=== PATIENT | male | born 1945 | race Caucasian/White ===

== ENCOUNTER → 2017-01-09 | Outpatient (CLI) | payer MEDICARE, BC ==
--- NOTE | 2017-01-09 17:49 | RADRPT ---
PROCEDURE: XR Left hip and pelvis. CLINICAL INDICATION: Left hip pain and pelvic pain. TECHNIQUE: 3 views. Frontal pelvis. Frontal and lateral left hip. COMPARISON: None. FINDINGS: There is no fracture or dislocation. The soft tissues are normal. The right hip demonstrates mild degenerative change with osteophytes noted. The left hip demonstrate s moderate degenerative change with osteophytes, subarticular sclerosis, subarticular cysts, and mary nt space narrowing. There is no lytic or blastic lesion. There has been prior pelvic surgery with metal surgical material noted, likely from mesh placement. There are degenerative changes of the lower lumbar spine. IMPRESSION: 1. Mild degenerative changes of the right hip. 2. Moderate degenerative changes of the left hip. 3. Degenerative changes of the lower lumbar spine. 4. Prior pelvic surgery. RPTAT: QQ .Duarte Parra MD, MD Date Time Electronically viewed and signed by .Duarte Parra MD, MD on 01/09/2017 17:49 .R/
--- NOTE | 2017-01-09 17:50 | RADRPT ---
PROCEDURE: Right knee radiographs. CLINICAL INDICATION: Right knee pain. TECHNIQUE: Four views. Weight bearing. Frontal, lateral, oblique, and patellar view. COMPARISON: No prior studies are available for comparison. FINDINGS: There is no fracture or dislocation. There is chondrocalcinosis. Vascular calcifications are present consistent with atherosclerosis. There are degenerative changes with osteophytes arising from all 3 joint compartment margins. There is medial joint compartment narrowing, subarticular sclerosis, and mild deformity. There is no lytic or blastic lesion. There is no radiopaque foreign body. IMPRESSION: 1. Atherosclerosis. 2. Chondrocalcinosis. 3. Moderate to severe degenerative changes of the right knee. RPTAT: QQ .Duarte Parra MD, MD Date Time Electronically viewed and signed by .Duarte Parra MD, on 01/09/2017 17:49 .R/
--- NOTE | 2017-01-11 11:32 | HKNOTE ---
DATE OF SERVICE: 01/09/2017 HISTORY: Pain in the right knee and left hip. HISTORY OF CHIEF COMPLAINT: He underwent surgery in 1974 for torn ligaments of the right knee by Dr. Knox in [place]. After having an injury to this knee, he had apparently an open reconstruction s urgery for torn ligaments. He then continued to play handball for 7 years, the knee became somewhat painful and then he started playing racquetball for 15 years. Twelve years ago he started hiking and would find that he had pain coming down a hill on occasion. He then went and had surgical therapy t reatments to strengthen his quadriceps muscle and the pain got somewhat better. He does not take reg ular medications but does take Motrin tablets as needed. CURRENT COMPLAINTS IN THE RIGHT KNEE: He has no pain today; however, he does have pain going up and down stairs or riding his bicycle. The pain has got somewhat better. He denies stiffness in the rig ht knee but has had a constant swelling of the knee. There is no giving away of the knee, there is n o locking of his right knee. LEFT HIP: For 3 years he has noted pain in the left hip getting worse. He has had x-rays for the hip at some stage. The pain now is in the front of the hip, it is somewhat moderate in nature. It only occurs when he is walking. When sitting or relaxing, he has no pain in the left hip. The pain does not waken him at night. He has no difficulty tying his shoes or putting on socks. He has no difficul ty sitting in a tub or in a low chair. The pain in the left hip is aggravated by gardening and relie xu by sitting down and taking the weight off his left leg. His general health has been satisfactory. He has been treated for high cholesterol with a statin med ication. He also takes baby aspirin, 1 a day. MARITAL STATUS: He is , he has 5 children. 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 PHYSICAL EXAMINATION: GENERAL: Healthy adult male, age 71, height 5 feet 9 inches, weight 175 pounds. RIGHT KNEE: He walks well, he is noted to have a marked varus deformity of the right knee. He is als o noted to have marked wasting of the right calf muscle and was also noted to have a large swelling at the back of the right knee in the popliteal fossa. He is able to walk on his tip toes and his julissa ls, has difficulty doing deep knee bends. Further examination of the right knee reveals a 4 inch ant erior and medial scar from the surgery that was done in 1974. There is tenderness over the medial tommy int line. There is some restriction of knee flexion, knee motion is from 0 to 130 degrees on the rig ht and 0 to 140 degrees on the left when the left knee range of motion is compared. There is no inst ability of the medial or lateral collateral ligaments or anterior posterior cruciate ligaments. The Guillermo test is negative. The Apley grinding test is negative. The pivot shift test is negative. Th ere is no evidence of subluxation of the patella and there is good motion of the patella with mild c repitus. Examination of the popliteal fossa reveals marked swelling in the popliteal fossa. This chris ears to be some adipose tissue and does not appear to be a Wise's cyst. LEFT HIP: There is tenderness over the anterior aspect of the left hip. HIP MOTION: RIGHT LEFT NORMAL Flexion: 140 130 Abduction: 45 40 Adduction: 40 35 External rotation: 50 40 Internal rotation: 45 5 with pain There is no evidence of a Trendelenburg gait. There is slight shortening of the right lower extremit y due to the varus deformity of the right knee. NEUROLOGICAL EXAMINATION OF THE LOWER LIMBS MOTOR: No wasting or weakness is noted. SENSATION: No disturbance to pinprick or light touch. REFLEXES: Right: 4+ Left:4+ Ankle: 2+ right and left. Plantar Flexor: Right flexor left. MEASURMENTS: Thigh circumference 6 inches above the superior pole of the patella, right 17-1/2, left 17-1/2. Knee circumference: Right 15, left 14. Calf circumference: Right 13-1/2, left 14-1/2. He is noted to have very well developed, excellent qu adricep muscles bilaterally. X-RAYS: X-rays were taken. X-rays of the right knee show marked narrowing of the medial joint space with a varus deformity of t he right knee. There is also some slight patella femoral arthritic changes. There are 2 small policy specialist ior loose bodies noted. X-rays of the hips reveal a grade 2 osteoarthritis of the left hip with some moderate to mild narrow ing of the joint with some periarticular sclerosis and small cyst formation. DIAGNOSES: 1. 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 2. Left hip: Grade 2 osteoarthritis. TREATMENT: The x-rays have been shown to the patient. It has been explained to him in great detail, the nature of his condition, especially the unique condylar medial osteoarthritis following the init ial surgery that he had in 1974 which has progressed to this stage and the varus deformity. The hip x-ray has also been shown. Treatment at this stage would be conservative in the form of Celebrex 200 mg b.i.d. after meals and to the decrease the Celebrex as the symptoms improve and to take it p.r.n . He has been given prescription of 60 tablets of 200 mg of Celebrex to be taken b.i.d. after meals and been called into his pharmacy. This hopefully will also help the pain in his left hip and also t he right shoulder and his low back pain. He is to be evaluated again within a month to determine the current status and to determine whether the Celebrex has been able to provide him with some pain re lief. At this stage no surgery is contemplated, but at some stage he may be a candidate for a medial unicondylar knee replacement and possible at some stage, a left hip replacement. Dictated By: VENICE Ngo MD, CMS/ROVERTO Conf#: [id number] DID#: [id number]
== END | disposition home or self-care (01) ==
LOC: HKI 16:29 → EDBD 16:30
PROVIDERS: ATTEND Orthopaedic Surgery
DX: M17.11 Unilateral primary osteoarthritis, right knee (principal); M16.12 Unilateral primary osteoarthritis, left hip; Z79.82 Long term (current) use of aspirin
CPT/HCPCS: 73502; 73564; G0463